=== PATIENT | female | born 2000 | race Caucasian/White ===

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

== ENCOUNTER 2022-01-05 09:38 | Inpatient (IN) | payer BC ==
[~2022-01-05 09:38] MED LIST changes: +Bupivacaine 0.25% 10 ML SDV ONE; -Dexamethasone 4 MG/ML SDV ONE; -HYDROmorphone 0.5 MG/0.5 ML Syringe IVPUSH PRN; -Lactated Ringers 1,000 ML ONE; -Lidocaine 1% 6 ML ONE; -Midazolam 1 MG/ML 2 ML SDV ONE; -Ondansetron 4 MG/2 ML SDV IVPUSH PRN; -Ondansetron 4 MG/2 ML SDV ONE; -Propofol 200 MG/20 ML SDV ONE; -Scopolamine 1 MG Transdermal Patch TRDERM ONE; -Sodium Chloride 0.9% 1,000 ML IV SCH; -Succinylcholine/Normal Saline 100 MG/5 ML Syringe ONE; -diphenhydrAMINE 50 MG/ML SDV IVPUSH PRN; +ePHEDrine 50 MG/ML SDV ONE; -fentaNYL 100 MCG/2 ML SDV ONE
[2022-01-05] MEDS ORDERED: Nalbuphine 10 MG/1 ML Vial IVPUSH PRN (09:49)
[2022-01-05] MEDS ORDERED: Sodium Chloride 0.9% 10 ML Syringe FLUSH PRN (09:49)
[2022-01-05] MEDS ORDERED: Lidocaine 1% 50 ML MDV INJECT ONE (09:49)
[2022-01-05] MEDS ORDERED: Acetaminophen 325 MG Tab PO PRN (09:49)
[2022-01-05] MEDS ORDERED: Ondansetron 4 MG/2 ML SDV IVPUSH PRN (09:49)
[2022-01-05] MEDS ORDERED: Oxytocin/Lactated Ringers 10 UNIT/1,000 ML BAG IV SCH (10:00)
[2022-01-05] MEDS: Oxytocin/Lactated Ringers 10 UNIT/1,000 ML BAG IV SCH (10:18)
[2022-01-05] MEDS: Lactated Ringers 1,000 ML IV SCH ×3 (10:18→22:26)
[2022-01-05] MEDS ORDERED: Sodium Chloride 0.9% 10 ML Syringe FLUSH SCH (21:00)
[2022-01-05] MEDS ORDERED: fentaNYL 100 MCG/2 ML SDV EPIDUR PRN (21:15)
[2022-01-05] MEDS ORDERED: ePHEDrine 50 MG/ML SDV IVPUSH PRN (21:15)
[2022-01-05] MEDS ORDERED: diphenhydrAMINE 50 MG/ML SDV IVPUSH PRN (21:15)
[2022-01-05] MEDS: Bupivacaine/fentaNYL/NS 100 ML Bag EPIDUR PRN (21:21)
[2022-01-06] MEDS: Oxytocin/Lactated Ringers 10 UNIT/1,000 ML BAG IV SCH (01:09)
[2022-01-06] MEDS: Bupivacaine/fentaNYL/NS 100 ML Bag EPIDUR PRN (04:30)
[2022-01-06] MEDS: Lactated Ringers 1,000 ML IV SCH (05:50)
[2022-01-06] MEDS ORDERED: Witch Hazel Medicated Pads 40/Jar TOP PRN (11:35)
[2022-01-06] MEDS ORDERED: Docusate Sodium 100 MG Cap PO PRN (11:35)
[2022-01-06] MEDS ORDERED: Benzocaine/Menthol 20%-0.5% Spray 78 GM Cannister TOP PRN (11:35)
[2022-01-06] MEDS ORDERED: Acetaminophen 325 MG Tab PO PRN (11:35)
[2022-01-06] MEDS: Ibuprofen 600 MG Tab PO PRN ×2 (11:42→19:58)
[2022-01-07] MEDS: Ibuprofen 600 MG Tab PO PRN ×2 (06:38→20:26)
[2022-01-07] MEDS: Prenatal Multivitamin with Calcium/Folic Acid/Iron Tab PO SCH (20:38)
[2022-01-08 09:54] VITALS: BP 119/80; PULSE 81
[2022-01-08] MEDS: Prenatal Multivitamin with Calcium/Folic Acid/Iron Tab PO SCH (09:57)
== END 2022-01-08 12:57 | disposition home or self-care (01) | DRG 560 ==
LOC: JD.OB 09:38 → OBSVTOIN 09:51 → JD.OB 01-06 10:25 → JD.MS 01-06 10:53 → JD.OB 01-06 11:00
PROVIDERS: ADMIT Obstetrics & Gynecology; ATTEND Obstetrics & Gynecology
PROC: 10E0XZZ Delivery of Products of Conception, External Approach (ICD-10-PCS; principal; 2022-01-06)
PROC: 10907ZC Drainage of Amniotic Fluid, Therapeutic from Products of Conception, Via Natural or Artificial Opening (ICD-10-PCS; 2022-01-06)
PROC: 3E033VJ Introduction of Other Hormone into Peripheral Vein, Percutaneous Approach (ICD-10-PCS; 2022-01-06)
PROC: 3E0R3BZ Introduction of Anesthetic Agent into Spinal Canal, Percutaneous Approach (ICD-10-PCS; 2022-01-06)
PROC: 0KQM0ZZ Repair Perineum Muscle, Open Approach (ICD-10-PCS; 2022-01-06)
DX: O48.0 Post-term pregnancy (principal); Z3A.40 40 weeks gestation of pregnancy; Z37.0 Single live birth; Z20.822 Contact with and (suspected) exposure to COVID-19; O70.1 Second degree perineal laceration during delivery
CPT/HCPCS: 36415; 51701; 51702; 59025; 59409; 82565; 82570; 83615; 84156; 84450; 84460; 84520; 84550; 85025; 86592; A9270-GY; J2590; J3010; J3490; J7120; U0002

== ENCOUNTER 2025-01-24 13:57 | Inpatient (IN) | payer OTHER ==
[2025-01-25] MEDS ORDERED: Ondansetron 4 MG/2 ML SDV IVPUSH PRN (00:17)
[2025-01-25] MEDS ORDERED: Lidocaine 1% 50 ML MDV INJECT PRN (00:17)
[2025-01-25] MEDS ORDERED: Oxytocin/0.9 % Sodium Chloride 30 UNIT/500 ML BAG IV SCH (00:30)
[2025-01-25 00:40] LABS: BASOPHILS PERCENT AUTO 0.3 % (0.0-1.0); EOSINOPHILS ABSOLUTE AUTO 0.1 K/mm3 (0.0-0.4); EOSINOPHILS PERCENT AUTO 1.2 % (0.0-6.0); HEMATOCRIT 35.6 % (37.0-47.0); HEMOGLOBIN 12.1 gm/dl (12.0-16.0); IMMATURE GRAN ABSOLUTE AUTO 0.05 K/mm3 (0.00-0.05); IMMATURE GRAN PERCENT AUTO 0.5 % (0.0-0.4); LYMPHOCYTES PERCENT AUTO 20.4 % (24.0-44.0); MEAN CORPUSCULAR VOLUME 85.4 fl (83.0-99.0); MEAN PLATELET VOLUME 10.3 fl (9.4-12.3); MONOCYTES ABSOLUTE AUTO 0.7 K/mm3 (0.0-0.8); MONOCYTES PERCENT AUTO 6.8 % (0.0-8.0); NEUTROPHILS ABSOLUTE AUTO 7.1 K/mm3 (1.8-7.7); NEUTROPHILS PERCENT AUTO 70.8 % (41.0-71.0); PLATELET COUNT,PLT 228 K/mm3 (150-400); RED BLOOD CELL COUNT 4.17 M/mm3 (4.10-5.30); WHITE BLOOD CELL COUNT,WBC 9.96 K/mm3 (3.9-11.3)
[2025-01-25] MEDS: Misoprostol 25 MCG (1/4 of 100 MCG) Tab VAG ONE ×2 (01:09→05:38)
[2025-01-25] MEDS: Lactated Ringers 1,000 ML IV SCH (09:29)
[2025-01-25] MEDS: Oxytocin/0.9 % Sodium Chloride 30 UNIT/500 ML BAG IV SCH (09:30)
[2025-01-25] MEDS: Penicillin G Potassium 5 MILLUNITS in Sodium Chloride 0.9% 100 ML IV ONE (09:46)
[2025-01-25] MEDS: Nalbuphine 10 MG/1 ML Vial IVPUSH PRN (12:35)
[2025-01-25] MEDS: Penicillin G Potassium 2.5 MILLUNITS in Sodium Chloride 0.9% 100 ML IV SCH (13:08)
[2025-01-25] MEDS ORDERED: Docusate Sodium 100 MG Cap PO PRN (14:19)
[2025-01-25] MEDS: Acetaminophen 325 MG Tab PO PRN (14:26)
[2025-01-25] MEDS: Ibuprofen 600 MG Tab PO SCH (14:26)
[2025-01-25] MEDS: Witch Hazel Medicated Pads 40/Jar TOP PRN (16:09)
[2025-01-25] MEDS: Benzocaine/Menthol 20%-0.5% Spray 78 GM Cannister TOP PRN (16:09)
[2025-01-26] MEDS: Ibuprofen 600 MG Tab PO SCH (08:15)
[2025-01-26 12:27] VITALS: BP 115/71; PULSE 78
[2025-01-26] MEDS: Measles, Mumps & Rubella Vaccine 0.5 ML SDV SUBCUT ONE (14:26)
== END 2025-01-26 14:50 | disposition home or self-care (01) | DRG 807 ==
LOC: JD.OB 13:57 → OBSVTOIN 01-25 13:57 → JD.OB 01-25 13:58
PROVIDERS: ADMIT Family Medicine; ATTEND Family Medicine
PROC: 10E0XZZ Delivery of Products of Conception, External Approach (ICD-10-PCS; principal; 2025-01-25)
PROC: 3E033VJ Introduction of Other Hormone into Peripheral Vein, Percutaneous Approach (ICD-10-PCS; 2025-01-25)
PROC: 3E0P7VZ Introduction of Hormone into Female Reproductive, Via Natural or Artificial Opening (ICD-10-PCS; 2025-01-25)
PROC: 10907ZC Drainage of Amniotic Fluid, Therapeutic from Products of Conception, Via Natural or Artificial Opening (ICD-10-PCS; 2025-01-25)
DX: O99.824 Streptococcus B carrier state complicating childbirth (principal); Z37.0 Single live birth; O70.0 First degree perineal laceration during delivery; O69.81X0 Labor and delivery complicated by cord around neck, without compression, not applicable or unspecified; Z3A.40 40 weeks gestation of pregnancy; Z98.890 Other specified postprocedural states
CPT/HCPCS: 36415; 59025; 59409; 85025; 86592; 86850; 86900; 86901; 90707; A9270-GY; J2300; J2540; J7120; J7999